=== PATIENT | female | born 1995 | race Caucasian/White ===

== ENCOUNTER 2017-09-03 22:25 | Emergency (ER) | payer SELFPAY ==
[2017-09-03 22:43] VITALS: BP 132/65; PULSE 85; RESP 16; TEMP 98.3; O2SAT 98
--- NOTE | 2017-09-04 00:53 | PD ---
HPI Chief Complaint: Eye Problems/Injury Time Seen by Provider: 00:39 Travel History International Travel<30 days: No Contact w/Intl Traveler<30days: No Traveled to known affect area: No History of Present Illness HPI 22-year-old female complains of fluid squishy around her eyes tonight. Patient is a contact lens wearer. Patient states that she feel squishy feeling on the eyeballs when she presses on them tonight. Patient denies any visual change. Patient denies any eye pain. Patient denies any tearing. Patient denies any flashing light or spiderweb or floaters. Patient denies any itching of the eyes. PFSH Past Medical History Medical History: Denies Significant Hx Diminished Hearing: No Immunizations Current: Yes ?: Not Social History Alcohol Use: No Tobacco Use: No Substance Use: No Allergies-Medications (Allergen,Severity, Reaction): Coded Allergies: No Known Allergies (Unverified , 09/03/17) Reported Meds & Prescriptions Reported Meds & Active Scripts Active No Active Prescriptions or Reported Medications Review of Systems General / Constitutional: No: Fever Eyes: No: Visual changes HENT: No: Headaches Cardiovascular: No: Chest Pain or Discomfort Respiratory: No: Shortness of Breath Gastrointestinal: No: Abdominal Pain Genitourinary: No: Dysuria Musculoskeletal: No: Pain Skin: No Rash Neurologic: No: Weakness Psychiatric: No: Depression Endocrine: No: Polydipsia Hematologic/Lymphatic: No: Easy Bruising Physical Exam Narrative GENERAL: Well-nourished, well-developed patient. SKIN: Focused skin assessment warm/dry. HEAD: Normocephalic. EYES: No scleral icterus. No injection or drainage. Pupils 2 mm equal reactive. No evidence of edema redness of the conjunctiva. No evidence of foreign body. Visual field intact. NECK: Supple, trachea midline. No JVD or lymphadenopathy. CARDIOVASCULAR: Regular rate and rhythm without murmurs, gallops, or rubs. RESPIRATORY: Breath sounds equal bilaterally. No accessory muscle use. GASTROINTESTINAL: Abdomen soft, non-tender, nondistended. MUSCULOSKELETAL: No cyanosis, or edema. BACK: Nontender without obvious deformity. No CVA tenderness. Data Data Last Documented VS Vital Signs Date Time Temp Pulse Resp B/P (MAP) Pulse Ox O2 Delivery O2 Flow Rate FiO2 09/03/17 22:43 98.3 85 16 132/65 (87) 98 Orders Orders Ed Discharge Order (09/04/17 00:45) MDM Medical Decision Making Medical Screen Exam Complete: Yes Emergency Medical Condition: Yes Differential Diagnosis Differential diagnosis including conjunctival edema, conjunctivitis, episcleritis. Narrative Course 22-year-old female with squishy feeling of the eyeballs tonight. Examination of the eyes are benign. Diagnosis Primary Impression: Conjunctival edema of both eyes Additional Instructions: Observation. Follow-up as needed. Return if worse. Med/Other Pt SpecificInfo: No Meds Exist/No RX given Scripts No Active Prescriptions or Reported Meds Disposition: 01 DISCHARGE HOME Condition: Stable Alexis Mcknight MD Sep 04, 2017 00:53
== END 2017-09-04 00:59 | disposition home or self-care (01) ==
LOC: NEPD 22:25
DX: H02.846 Edema of left eye, unspecified eyelid (principal); H02.843 Edema of right eye, unspecified eyelid
CPT/HCPCS: 99281